=== PATIENT | male | born 1950 | race Caucasian/White ===

== ENCOUNTER → 2019-10-15 | Outpatient (CLI) | payer MEDICARE ==
[~2019-10-15] MED LIST: REGADENOSON 0.4 MG/5 ML SYRINGE ONE
== END | disposition home or self-care (01) ==
LOC: CFH 07:45
PROVIDERS: ATTEND Internal Medicine Cardiovascular Disease
CPT/HCPCS: 78452 ×2; 93017 ×2; A9502; J2785 ×2

== ENCOUNTER 2019-11-19 10:57 | Day surgery (SDC) | payer MEDICARE ==
[2019-11-18 13:30] VITALS: BP 154/80
[2019-11-18 13:55] LABS: BASOPHILS # (AUTO) 0.03 x10^3/uL (0-0.1); BASOPHILS % (AUTO) 1 % (0-1); EOSINOPHILS # (AUTO) 0.09 x10^3/uL (0-0.4); EOSINOPHILS % (AUTO) 2 % (1-7); LYMPHOCYTES # (AUTO) 1.17 x10^3/uL (1-3.4); LYMPHOCYTES % (AUTO) 24 % (22-44); MD NO; MEAN CORPUSCULAR HEMOGLOBIN 31.6 pg (27.5-34.5); MEAN CORPUSCULAR HGB CONC 33.5 g/dL (33.2-36.2); MEAN CORPUSCULAR VOLUME 94.1 fL (81-97); MONOCYTES # (AUTO) 0.58 x10^3/uL (0.2-0.8); MONOCYTES % (AUTO) 12 % (2-9); NEUTROPHILS # (AUTO) 3.03 x10^3/uL (1.8-6.8); NEUTROPHILS % (AUTO) 62 % (42-75); PLATELET COUNT 125 x10^3/uL (130-400); RED CELL DISTRIBUTION WIDTH 13.1 % (9.4-14.8)
[2019-11-18 14:05] LABS: ALBUMIN 3.2 g/dL (3.4-5.0); ANION GAP 5 mmol/L (5-15); CALCIUM 9.1 mg/dL (8.5-10.1); CHLORIDE 109 mmol/L (98-107)
[2019-11-18 14:09] LABS: ALANINE AMINOTRANSFERASE 22 U/L (12-78); ALKALINE PHOSPHATASE 95 U/L (45-117); BILIRUBIN,TOTAL 1.2 mg/dL (0.2-1.0); CREATININE 1.19 mg/dL (0.7-1.3); TOTAL PROTEIN 6.8 g/dL (6.4-8.2)
[~2019-11-19] VITALS: Ht 182.9 cm; Wt 71.8 kg
[~2019-11-19 10:57] MED LIST changes: +ATOR40TA78 PO; +CARV12.52 PO; +OLME5TAB4 PO; +PANT40TA3 PO; -REGADENOSON 0.4 MG/5 ML SYRINGE ONE; +TERA5CAP3 PO
[2019-11-19] MEDS ORDERED: SODIUM CHLORIDE 0.9% 1,000 ML IV SCH ×2 (11:00→14:40)
[2019-11-19] MEDS ORDERED: VITAMIN D PO (11:58)
[2019-11-19] MEDS ORDERED: ASCO500C2 PO (11:58)
[2019-11-19] MEDS ORDERED: MULT-658 PO (11:58)
[2019-11-19] MEDS ORDERED: CALCIUM PO (11:58)
[2019-11-19] MEDS ORDERED: OMEG1CAP6 PO (11:58)
[2019-11-19] MEDS ORDERED: CALC-118 PO (12:01)
[2019-11-19] MEDS ORDERED: FENTANYL PF 100 MCG/2ML ONE (12:30)
[2019-11-19] MEDS ORDERED: LIDOCAINE-MPF 1%, 5ML ONE (12:30)
[2019-11-19] MEDS ORDERED: HEPARIN 1,000 UNITS/ML, 10ML ONE (12:30)
[2019-11-19] MEDS ORDERED: MIDAZOLAM 1 MG/ML, 5ML ONE (12:30)
[2019-11-19] MEDS ORDERED: VERAPAMIL 2.5 MG/ML, 2ML ONE (12:30)
[2019-11-19] MEDS ORDERED: DIPHENHYDRAMINE 50 MG/ML, 1ML ONE (12:51)
[2019-11-19] MEDS ORDERED: BIVALIRUDIN 250 MG ONE (13:14)
[2019-11-19] MEDS ORDERED: TICAGRELOR 90 MG TABLET ONE (13:14)
== END 2019-11-19 15:38 | disposition home or self-care (01) ==
LOC: CACL 10:57
PROVIDERS: ATTEND Internal Medicine Cardiovascular Disease
DX: I25.10 Atherosclerotic heart disease of native coronary artery without angina pectoris (principal); E78.5 Hyperlipidemia, unspecified; I10 Essential (primary) hypertension; I25.2 Old myocardial infarction; Z87.39 Personal history of other diseases of the musculoskeletal system and connective tissue; Z79.82 Long term (current) use of aspirin
CPT/HCPCS: 36415; 80053; 85025; 93458; 99156; C1769; C1894; J0583; J1200; J1644; J2250; Q9967; J3010

== ENCOUNTER 2019-12-08 11:49 | Emergency (ER) | payer MEDICARE ==
[~2019-12-08] VITALS: Ht 182.9 cm; Wt 72.0 kg
[~2019-12-08 11:49] MED LIST changes: +ASCO500C2 PO; +CALC-118 PO; +CALCIUM PO; +MULT-658 PO; +OMEG1CAP6 PO; +VITAMIN D PO
[2019-12-08 12:24] VITALS: BP 152/71
[2019-12-08] MEDS ORDERED: KETOROLAC 30 MG/1 ML IM ONE (12:30)
[2019-12-08 12:43] LABS: BASOPHILS # (AUTO) 0.03 x10^3/uL (0-0.1); BASOPHILS % (AUTO) 1 % (0-1); EOSINOPHILS # (AUTO) 0.07 x10^3/uL (0-0.4); EOSINOPHILS % (AUTO) 1 % (1-7); LYMPHOCYTES # (AUTO) 0.96 x10^3/uL (1-3.4); LYMPHOCYTES % (AUTO) 16 % (22-44); MD NO; MEAN CORPUSCULAR HEMOGLOBIN 31.6 pg (27.5-34.5); MEAN CORPUSCULAR HGB CONC 33.5 g/dL (33.2-36.2); MEAN CORPUSCULAR VOLUME 94.1 fL (81-97); MEAN PLATELET VOLUME 7.8 fL (7.4-10.4); MONOCYTES # (AUTO) 0.61 x10^3/uL (0.2-0.8); MONOCYTES % (AUTO) 10 % (2-9); NEUTROPHILS # (AUTO) 4.25 x10^3/uL (1.8-6.8); NEUTROPHILS % (AUTO) 72 % (42-75); PLATELET COUNT 166 x10^3/uL (130-400); RED CELL DISTRIBUTION WIDTH 13.4 % (9.4-14.8)
[2019-12-08] MEDS ORDERED: KETOROLAC 30 MG/1 ML ONE (12:43)
--- NOTE | 2019-12-08 12:46 | NUR ---
PT HERE WITH C/O RIGHT ANKLE PAIN AND DENIES TRAUMA, RIGHT ANKLE SWOLLEN. PT MEDICATED PER ORDER.
[2019-12-08] MEDS ORDERED: LIDOCAINE-MPF 1%, 5ML INFIL ONE (14:00)
[2019-12-08] MEDS ORDERED: LIDOCAINE-MPF 1%, 5ML ONE (14:10)
--- NOTE | 2019-12-08 14:16 | NUR ---
PA AT BEDSIDE FOR JOINT ASPIRATION.
[2019-12-08] MEDS ORDERED: ONDANSETRON ODT 4 MG ONE (14:49)
[2019-12-08] MEDS ORDERED: HYDROmorphone 1 MG/ML, 1ML INJ ONE (14:50)
[2019-12-08] MEDS ORDERED: DIPHENHYDRAMINE 25 MG CAPSULE ONE (14:50)
--- NOTE | 2019-12-08 14:58 | NUR ---
PT MEDICATED PER ORDERS.
[2019-12-08] MEDS ORDERED: ONDANSETRON ODT 4 MG PO ONE (15:00)
[2019-12-08] MEDS ORDERED: DIPHENHYDRAMINE 25 MG CAPSULE PO ONE (15:00)
[2019-12-08] MEDS ORDERED: HYDROmorphone 1 MG/ML, 1ML INJ IM ONE (15:00)
== END 2019-12-08 17:34 ==
LOC: ED 17:10
DX: M25.571 Pain in right ankle and joints of right foot (principal); I25.2 Old myocardial infarction; K21.9 Gastro-esophageal reflux disease without esophagitis; M06.9 Rheumatoid arthritis, unspecified
CPT/HCPCS: 20605; 36415; 73610; 84550; 85025; 85810; 87070; 87205; 89060; 96372; 99284; J1170; J1885; Q0162; Q0163; 20610

== ENCOUNTER 2019-12-25 08:01 | Emergency (ER) | payer MEDICARE ==
[~2019-12-25] VITALS: Ht 182.9 cm; Wt 76.8 kg
--- NOTE | 2019-12-25 08:19 | NUR ---
PATIENT ARRIVES WITH LEFT FLANK PAIN THAT IS A 10 OF 10 THAT BEGAN LAST NIGHT, HE HAS A HISTORY OF KIDNEY STONES. PATIENT HAS A HISTORY AN NC AND RA THAT FLARES UP AND HE IS CURRENTLY ON PREDINISONE. IN BED, RAILS UP ONMONTIOR, COLLECTED URINE URINE IS YELLOW CLEAR
[2019-12-25] MEDS ORDERED: HYDROmorphone 2 MG/ML, 1ML IVPush PRN (08:30)
[2019-12-25] MEDS ORDERED: KETOROLAC 30 MG/1 ML IVPush ONE (08:30)
[2019-12-25] MEDS ORDERED: DIPHENHYDRAMINE 50 MG/ML, 1ML IVPush ONE (08:30)
[2019-12-25] MEDS ORDERED: SODIUM CHLORIDE FLUSH 10ML SYR IVF ONE (08:30)
[2019-12-25] MEDS ORDERED: ONDANSETRON 2MG/ML, 2ML IVPush ONE (08:30)
[2019-12-25] MEDS ORDERED: KETOROLAC 30 MG/1 ML ONE (08:45)
[2019-12-25] MEDS ORDERED: HYDROmorphone 1 MG/ML, 1ML INJ ONE (08:45)
[2019-12-25] MEDS ORDERED: DIPHENHYDRAMINE 50 MG/ML, 1ML ONE (08:45)
[2019-12-25 08:49] LABS: MICROSCOPIC NOT IND
[2019-12-25] MEDS ORDERED: ONDANSETRON 2MG/ML, 2ML ONE (08:50)
[2019-12-25 09:04] LABS: CULTURE INDICATED? NO
[2019-12-25 09:06] LABS: BASOPHILS # (AUTO) 0.02 x10^3/uL (0-0.1); BASOPHILS % (AUTO) 0 % (0-1); EOSINOPHILS # (AUTO) 0.06 x10^3/uL (0-0.4); EOSINOPHILS % (AUTO) 1 % (1-7); LYMPHOCYTES # (AUTO) 1.55 x10^3/uL (1-3.4); LYMPHOCYTES % (AUTO) 27 % (22-44); MD NO; MEAN CORPUSCULAR HEMOGLOBIN 31.4 pg (27.5-34.5); MEAN CORPUSCULAR HGB CONC 33.3 g/dL (33.2-36.2); MEAN CORPUSCULAR VOLUME 94.2 fL (81-97); MEAN PLATELET VOLUME 8.1 fL (7.4-10.4); MONOCYTES # (AUTO) 0.62 x10^3/uL (0.2-0.8); MONOCYTES % (AUTO) 11 % (2-9); NEUTROPHILS # (AUTO) 3.56 x10^3/uL (1.8-6.8); NEUTROPHILS % (AUTO) 61 % (42-75); PLATELET COUNT 131 x10^3/uL (130-400); RED BLOOD COUNT 4.58 x10^6/uL (4.38-5.82); RED CELL DISTRIBUTION WIDTH 14.5 % (9.4-14.8)
--- NOTE | 2019-12-25 09:07 | NUR ---
apparently blood draw on iv start hemolyzed, so lab redrew and then that blood hemolyzed, so lab here for redraw. on monitor, pain feels improved according to patient. states pain now a 3 of 10
[2019-12-25 09:12] LABS: ALBUMIN 2.8 g/dL (3.4-5.0); ANION GAP 6 mmol/L (5-15); CALCIUM 8.2 mg/dL (8.5-10.1); CHLORIDE 108 mmol/L (98-107); CREATININE 1.21 mg/dL (0.7-1.3)
--- NOTE | 2019-12-25 10:03 | NUR ---
called ct scan, they had came earlier to take patient for scan but patient refused as he wanted pain meds. called them and they currently have a patient but he is next in line.
--- NOTE | 2019-12-25 10:06 | NUR ---
respiratory director here, patient taken to ct scan
--- NOTE | 2019-12-25 10:31 | NUR ---
PATIENT STATES FEELS IMPROVED. PAIN DOWN TO A [address] DONE AWAITING RESULTS.
--- NOTE | 2019-12-25 11:00 | NUR ---
patient reports he had a hernia mesh repair left lower abdomen in 2019
--- NOTE | 2019-12-25 11:05 | NUR ---
patient ct resulted and md is consulting urology.
[2019-12-25 11:28] VITALS: BP 123/57
--- NOTE | 2019-12-25 11:29 | NUR ---
PATIENT STATES PAIN A 2 OF 10 AT THIS TIME. AT BEDSIDE, AWAITING UROLOGY CONSULT
== END 2019-12-25 12:46 | disposition home or self-care (01) ==
LOC: ED 10:32
DX: M54.5 Low back pain (principal); R94.31 Abnormal electrocardiogram [ECG] [EKG]; I25.2 Old myocardial infarction; Z87.442 Personal history of urinary calculi
CPT/HCPCS: 36415; 74176; 80048; 81003; 82040; 85025; 96374; 96375; 99284; J1170; J1200; J1885; J2405

== ENCOUNTER 2020-06-16 17:00 | Emergency (ER) | payer MEDICARE ==
[~2020-06-16] VITALS: Ht 188 cm; Wt 77.0 kg
[2020-06-16] MEDS ORDERED: LEVO5TAB29 PO (17:25)
--- NOTE | 2020-06-16 17:42 | NUR ---
THIS IS A 69 YO M W/ C/O 1 5 MINUTE EPISODE OF BACK PAIN 10/07 AT 1520 WHICH HAS NOW RESOLVED. PT WAS INSTRUCTED TO COME TO ED BY CONTACT CENTER SPECIALIST DUE TO HX OF NM. PT RESTING ON GURNEY W/ CALL LIGHT IN REACH AND FAMILY AT BEDSIDE. CONNECTED TO ALL MONITORING, VSSRONI.
--- NOTE | 2020-06-16 17:46 | NUR ---
RAD IN ROOM.
[2020-06-16] MEDS ORDERED: SODIUM CHLORIDE FLUSH 10ML SYR IVF ONE (18:00)
[2020-06-16 18:08] LABS: BASOPHILS # (AUTO) 0.03 x10^3/uL (0-0.1); BASOPHILS % (AUTO) 1 % (0-1); EOSINOPHILS % (AUTO) 2 % (1-7); LYMPHOCYTES # (AUTO) 1.05 x10^3/uL (1-3.4); LYMPHOCYTES % (AUTO) 22 % (22-44); MD NO; MEAN CORPUSCULAR HEMOGLOBIN 31.5 pg (27.5-34.5); MEAN CORPUSCULAR HGB CONC 33.6 g/dL (33.2-36.2); MEAN CORPUSCULAR VOLUME 93.5 fL (81-97); MEAN PLATELET VOLUME 8.1 fL (7.4-10.4); MONOCYTES # (AUTO) 0.51 x10^3/uL (0.2-0.8); MONOCYTES % (AUTO) 11 % (2-9); NEUTROPHILS # (AUTO) 3.03 x10^3/uL (1.8-6.8); NEUTROPHILS % (AUTO) 64 % (42-75); PLATELET COUNT 125 x10^3/uL (130-400); RED BLOOD COUNT 4.58 x10^6/uL (4.38-5.82); RED CELL DISTRIBUTION WIDTH 14.2 % (9.4-14.8)
[2020-06-16 18:19] LABS: ALANINE AMINOTRANSFERASE 22 U/L (12-78); ALBUMIN 3.4 g/dL (3.4-5.0); ANION GAP 6 mmol/L (5-15); CALCIUM 8.4 mg/dL (8.5-10.1); CHLORIDE 110 mmol/L (98-107); CREATININE 1.09 mg/dL (0.7-1.3)
[2020-06-16 18:24] LABS: ALKALINE PHOSPHATASE 91 U/L (45-117); BILIRUBIN,TOTAL 1.3 mg/dL (0.2-1.0); TOTAL PROTEIN 6.7 g/dL (6.4-8.2); TROPONIN I < 0.015 ng/mL (0.000-0.045)
--- NOTE | 2020-06-16 18:49 | NUR ---
REPORT GIVEN TO CONSUELO RODRIGUEZ. PT RESTING ON GURNEY W/ CALL LIGHT IN REACH AND FAMILY AT BEDSIDE, RONI BARNETT. AWAITING RECHECK.
[2020-06-16 19:22] VITALS: BP 132/64
== END 2020-06-16 19:34 | disposition home or self-care (01) ==
LOC: ED 18:05
DX: R07.89 Other chest pain (principal); M25.512 Pain in left shoulder; R94.31 Abnormal electrocardiogram [ECG] [EKG]; I10 Essential (primary) hypertension; I25.2 Old myocardial infarction; K21.9 Gastro-esophageal reflux disease without esophagitis; Z98.61 Coronary angioplasty status
CPT/HCPCS: 36415; 71045; 80053; 83880; 84484; 85025; 93005; 99285

== ENCOUNTER → 2020-08-04 | Outpatient (CLI) | payer MEDICARE ==
[~2020-08-04] MED LIST changes: +ABAT125S INJ; +LEVO5TAB29 PO
== END | disposition home or self-care (01) ==
LOC: STAR 14:06
PROVIDERS: ATTEND Otolaryngology
DX: Z01.812 Encounter for preprocedural laboratory examination (principal); J34.2 Deviated nasal septum; J34.3 Hypertrophy of nasal turbinates; I25.2 Old myocardial infarction; Z20.828 Contact with and (suspected) exposure to other viral communicable diseases; Z91.09 Other allergy status, other than to drugs and biological substances
CPT/HCPCS: 36415; 87635; 93005

== ENCOUNTER 2020-08-09 10:12 | Day surgery (SDC) | payer MEDICARE ==
[~2020-08-09] VITALS: Ht 182.9 cm; Wt 76.0 kg
[~2020-08-09 10:12] MED LIST changes: +BACITRACIN OINT 500U/GM, 15 GM ONE; +EPINEPHRINE 1 MG/ML, 1ML ONE; +LIDOCAINE/PF 1%, 30ML ONE; +OXYMETAZOLINE NASAL SPRAY 0.05%, 15ML ONE
[2020-08-09] MEDS ORDERED: CHLORHEXIDINE 15 ML UDC MM STA (10:21)
[2020-08-09] MEDS ORDERED: CHLORHEXIDINE 15 ML UDC ONE (10:26)
[2020-08-09] MEDS ORDERED: LACTATED RINGERS 1,000 ML IV SCH (10:30)
[2020-08-09 10:45] VITALS: BP 150/72
[2020-08-09] MEDS ORDERED: PROPOFOL 50 ML ONE (11:11)
[2020-08-09] MEDS ORDERED: FENTANYL PF 250 MCG/5ML ONE (11:11)
[2020-08-09] MEDS ORDERED: OXYMETAZOLINE NASAL SPRAY 0.05%,30ML NAS ONE (11:30)
[2020-08-09] MEDS ORDERED: LIDOCAINE 1%-EPI 1:100K, 30ML INFIL ONE ×2 (11:30→11:42)
[2020-08-09] MEDS ORDERED: MIDAZOLAM 1 MG/ML, 2ML IV PRN (12:00)
[2020-08-09] MEDS ORDERED: PROMETHAZINE 25 MG SUPP PR PRN (12:00)
[2020-08-09] MEDS ORDERED: ACETAMINOPHEN 325 MG TABLET PO PRN (12:00)
[2020-08-09] MEDS ORDERED: OXYcodone 5 MG/5 ML ORAL.SOL UDC PO PRN (12:00)
[2020-08-09] MEDS ORDERED: DIPHENHYDRAMINE 50 MG/ML, 1ML IVPush PRN (12:00)
[2020-08-09] MEDS ORDERED: MEPERIDINE/PF 25MG/0.5ML IVPush PRN (12:00)
[2020-08-09] MEDS ORDERED: HYDROmorphone 1 MG/ML, 1ML INJ IVPush PRN (12:00)
[2020-08-09] MEDS ORDERED: METOCLOPRAMIDE 5 MG/ML, 2ML IVPush PRN (12:00)
[2020-08-09] MEDS ORDERED: EPHEDRINE 50 MG/ML, 1ML IVPush PRN (12:00)
[2020-08-09] MEDS ORDERED: FENTANYL PF 100 MCG/2ML IV PRN (12:00)
[2020-08-09] MEDS ORDERED: PROMETHAZINE 25 MG/ML, 1ML IVPush PRN (12:00)
[2020-08-09] MEDS ORDERED: DIAZEPAM 5 MG/ML, 2ML IVPush PRN (12:00)
[2020-08-09] MEDS ORDERED: ONDANSETRON 2MG/ML, 2ML IVPush PRN (12:00)
[2020-08-09] MEDS ORDERED: LABETALOL 5MG/ML, 20ML IV PRN (12:00)
[2020-08-09] MEDS ORDERED: EPHEDRINE 50 MG/ML, 1ML IM PRN (12:00)
[2020-08-09] MEDS ORDERED: BACITRACIN OINT 500U/GM, 15 GM TP ONE (12:15)
[2020-08-09] MEDS ORDERED: PROPOFOL 10 MG/ML, 20ML ONE (12:19)
[2020-08-09] MEDS ORDERED: ROCURONIUM 10MG/ML,5ML ONE (12:19)
[2020-08-09] MEDS ORDERED: DEXAMETHASONE 4 MG/ML, 1ML ONE (12:19)
[2020-08-09] MEDS ORDERED: ONDANSETRON 2MG/ML, 2ML ONE (12:19)
[2020-08-09] MEDS ORDERED: ACETAMINOPHEN 650 MG/20.3 ML UDC ONE (13:04)
== END 2020-08-09 14:00 | disposition home or self-care (01) ==
LOC: OUT 10:12
PROVIDERS: ATTEND Otolaryngology
DX: J34.2 Deviated nasal septum (principal); J34.3 Hypertrophy of nasal turbinates; E78.2 Mixed hyperlipidemia; I25.10 Atherosclerotic heart disease of native coronary artery without angina pectoris; I10 Essential (primary) hypertension; E03.9 Hypothyroidism, unspecified; M06.9 Rheumatoid arthritis, unspecified; I25.2 Old myocardial infarction; Z88.5 Allergy status to narcotic agent; Z88.8 Allergy status to other drugs, medicaments and biological substances; Z79.899 Other long term (current) drug therapy; Z79.82 Long term (current) use of aspirin; Z95.818 Presence of other cardiac implants and grafts; Z82.49 Family history of ischemic heart disease and other diseases of the circulatory system; Z95.5 Presence of coronary angioplasty implant and graft
CPT/HCPCS: 30140; 30520; J0171; J1100; J2405; J2704; J3010; J3490; J7120

== ENCOUNTER 2021-07-01 08:52 | Outpatient (CLI) | payer MEDICARE ==
[~2021-07-01 08:52] MED LIST changes: +ALPR1TAB2 PO; -BACITRACIN OINT 500U/GM, 15 GM ONE; -EPINEPHRINE 1 MG/ML, 1ML ONE; -LIDOCAINE/PF 1%, 30ML ONE; -OXYMETAZOLINE NASAL SPRAY 0.05%, 15ML ONE
[2021-07-01] MEDS ORDERED: OMNIPAQUE 350 MG/ML, 100ML BOTTLE ONE (09:15)
== END 2021-07-01 23:59 | disposition home or self-care (01) ==
LOC: CFH 08:52
PROVIDERS: ATTEND Internal Medicine Cardiovascular Disease
DX: I25.10 Atherosclerotic heart disease of native coronary artery without angina pectoris (principal); R07.89 Other chest pain; I42.9 Cardiomyopathy, unspecified; M54.9 Dorsalgia, unspecified
CPT/HCPCS: 71275; Q9967